=== PATIENT | male | born 1980 | race Two or more races ===

== ENCOUNTER 2017-11-30 08:02 | Emergency (ER) | payer SELFPAY, BC, OTHER ==
[~2017-11-30] VITALS: Ht 180.3 cm; Wt 74.8 kg
--- NOTE | 2017-11-30 08:30 | Emergency Room Report ---
History of Present Illness General Chief Complaint: Pain Source: Patient Present Illness HPI Patient is a 37-year-old male who presented after increased left-sided flank pain. Patient was in watch adjuster custody. Patient presented for medical clearance. Patient had recently fallen onto his left side. Patient stated he fell onto a step. The patient reports having prior history of HIV and states he takes Triumeq The patient does not recall last tetanus vaccine. He denies loss of consciousness. Allergies: Coded Allergies: No Known Allergies (Unverified , 11/30/17) Patient History Past Medical History: see triage record Reviewed Nursing Documentation: PMH: Agreed; PSxH: Agreed Nursing Documentation-PMH Past Medical History: No Stated History Review of Systems All Other Systems: negative except mentioned in HPI Physical Exam Vital Signs Date Time Temp Pulse Resp B/P (MAP) Pulse Ox O2 Delivery O2 Flow Rate FiO2 11/30/17 08:11 98.0 86 18 124/77 96 Room Air 98.1 Sp02 EP Interpretation: reviewed, normal General Appearance: normal inspection, well appearing, no apparent distress, alert, GCS 15 Head: atraumatic ENT: normal ENT inspection, hearing grossly normal, normal voice Neck: normal inspection, full range of motion, supple, no bony tend Respiratory: normal inspection, lungs clear, normal breath sounds, no respiratory distress, no retraction, no wheezing Cardiovascular #1: regular rate, rhythm, no edema Gastrointestinal: normal inspection, normal bowel sounds, non tender, soft, no guarding, no hernia Genitourinary: no CVA tenderness Musculoskeletal: normal inspection, back normal, normal range of motion Neurologic: normal inspection, alert, oriented x3, responsive, software support engineer III-XII nml as tested, speech normal Psychiatric: normal inspection, judgement/insight normal, mood/affect normal Skin: no rash, abrasions - left flank Medical Decision Making Diagnostic Impression: Primary Impression: Multiple rib fractures ER Course Patient is a 37-year-old male who presented after a fall. The differential diagnosis included was not limited to abdominal injury, rib fracture, contusion , muscle strain among others. CT imaging of the chest was ordered due to patient's recent fall. The patient was noted to have fractures to ribs 11 and 12. The patient was medically cleared for booking. Patient is advised to return if any worsening condition or if any changes in status that are concerning. This report is dictated with [employer] deputy sheriff/investigator software which may occasionally lead to discrepancies related to use of this software. Last Vital Signs Date Time Temp Pulse Resp B/P (MAP) Pulse Ox O2 Delivery O2 Flow Rate FiO2 11/30/17 08:11 98.0 86 18 124/77 96 Room Air 98.1 Status: improved Disposition: HOME, SELF-CARE Condition: Stable Scripts Ibuprofen* (MOTRIN*) 600 Mg Tablet 600 MG ORAL Q8H PRN for For Pain, #30 TAB 0 Refills Prov: Danie Grimaldo 11/30/17 Hydrocodone Bit/Acetaminophen 5-325* (NORCO 5-325*) 1 Each Tablet 1 TAB ORAL Q6H PRN for For Pain, #30 TAB 0 Refills Prov: Danie Grimaldo 11/30/17 Danie Grimaldo November 30, 2017 08:30
[2017-11-30] MEDS ORDERED: Norco 5mg/325mg tab ORAL ONE (08:45)
[2017-11-30] MEDS ORDERED: NORCO 5-325 TA1 EACH ORAL (10:01)
[2017-11-30] MEDS ORDERED: IBUPROFEN600 MG ORAL (10:01)
[2017-11-30 10:11] VITALS: BP 123/78
--- NOTE | 2017-11-30 10:31 | Diagnostic Imaging Report ---
Indication: Pain status post fall Technique: CT chest was performed utilizing automated exposure control without intravenous contrast material. Axial and sagittal and coronal images were generated. CT dose: Total DLP 666 mGycm; CTDI vol 15.1 mGy Comparison: None Findings: There is no focal airspace consolidation. No pleural effusion or pneumothorax. There are minimal dependent atelectatic changes. Heart size within normal limits. No pericardial effusion. No appreciable mediastinal adenopathy. Thyroid appears grossly unremarkable. Copious stool noted within the colon raising question for constipation. Imaged upper abdomen is otherwise grossly unremarkable. There are mildly displaced acute fractures of the left 11th and 12th chest are ribs (Series 3 image 65 and 58). IMPRESSION: Acute mildly displaced fractures of the posterior left 11th and 12th ribs. No evidence of pneumothorax or pleural effusion/hemothorax. Lungs are clear. Findings suggest constipation. Correlate clinically. The CT scanner at [facility] is accredited by the [employer] and the scans are performed using protocols designed to limit radiation exposure to as low as reasonably achievable to attain images of sufficient resolution adequate for diagnostic evaluation.
== END 2017-11-30 10:15 | disposition home or self-care (01) ==
LOC: EMR 08:44
DX: S22.42XA Multiple fractures of ribs, left side, initial encounter for closed fracture (principal); W19.XXXA Unspecified fall, initial encounter; Y92.9 Unspecified place or not applicable
CPT/HCPCS: 71250; 99284